=== PATIENT | male | born 1980 | race Caucasian/White ===

== ENCOUNTER 2018-06-14 15:06 | Emergency (ER) | payer MEDICARE, MEDICAID ==
--- NOTE | 2018-06-14 15:35 | NUR ---
PT DECIDES TO GO TO [facility] TO CHECK IN WITH THEM, HE IS MOVING TO THIS AREA AND WANTS TO GET ESTABLISHED WITH THEM.
[2018-06-15] MEDS ORDERED: RISP3TAB3 PO ×3 (19:38)
[2018-06-15] MEDS ORDERED: PHEN51CR RC (19:42)
[2018-06-15] MEDS ORDERED: LORA10TA7 PO (19:42)
[2018-06-15] MEDS ORDERED: DOCU-28 PO (19:42)
[2018-06-15] MEDS ORDERED: PALI117D IM (19:42)
== END 2018-06-14 16:02 | disposition left against medical advice (07) ==
LOC: ER 15:07
DX: F31.9 Bipolar disorder, unspecified (principal); Z53.21 Procedure and treatment not carried out due to patient leaving prior to being seen by health care provider

== ENCOUNTER 2018-06-15 18:38 | Emergency (ER) | payer MEDICARE, MEDICAID ==
[~2018-06-15] VITALS: Ht 182.9 cm; Wt 80.9 kg
--- NOTE | 2018-06-15 19:00 | NUR ---
pt is in bed sleeping he is on his left side, no s/s of distress
[2018-06-15] MEDS ORDERED: RISP3TAB3 PO ×3 (19:38)
[2018-06-15] MEDS ORDERED: DOCU-28 PO (19:42)
[2018-06-15] MEDS ORDERED: PALI117D IM (19:42)
[2018-06-15] MEDS ORDERED: PHEN51CR RC (19:42)
[2018-06-15] MEDS ORDERED: LORA10TA7 PO (19:42)
[2018-06-15 19:50] LABS: URINE AMPHETAMINE SCREEN NEGATIVE (Neg); URINE BARBITUATE SCREEN NEGATIVE (Neg); URINE BENZODIAZEPINES SCREEN NEGATIVE (Neg); URINE CANNABINOID SCREEN POSITIVE (Neg); URINE COCAINE SCREEN NEGATIVE (Neg); URINE METHADONE SCREEN NEGATIVE (Neg); URINE OPIATE SCREEN NEGATIVE (Neg); URINE PHENCYCLIDINE SCREEN NEGATIVE (Neg)
[2018-06-15 19:58] LABS: BASOPHILS % (AUTO) 0.8 % (0-1); EOSINOPHILS # (AUTO) 0.1 X10'3 (0-0.9); EOSINOPHILS % (AUTO) 2.9 % (0-6); HEMATOCRIT 39.9 % (42.0-52.0); HEMOGLOBIN 13.3 g/dl (14.0-17.9); LYMPHOCYTES % (AUTO) 43.6 % (21-51); MEAN CORPUSCULAR HEMOGLOBIN 30.6 PG (27.0-31.0); MEAN CORPUSCULAR HGB CONC 33.3 % (33.0-36.5); MEAN CORPUSCULAR VOLUME 91.9 FL (78-98); MEAN PLATELET VOLUME 7.1 FL (7.4-10.4); MONOCYTES # (AUTO) 0.4 X10'3 (0-0.9); MONOCYTES % (AUTO) 9.1 % (2-12); NEUTROPHILS % (AUTO) 43.6 % (42-75); PLATELET COUNT 240 X10'3 (140-440); RED BLOOD COUNT 4.34 X10'6 (4.70-6.10); RED CELL DISTRIBUTION WIDTH 12.8 % (11.5-14.5); WHITE BLOOD COUNT 4.6 X10'3 (4.5-11.0)
--- NOTE | 2018-06-15 20:00 | NUR ---
called telepsych spoke to Yifan, initiated consult,
[2018-06-15 20:05] LABS: ALANINE AMINOTRANSFERASE 33 U/L (12-78); ALBUMIN 3.6 G/DL (3.4-5.0); ALBUMIN/GLOBULIN RATIO 1.3 (1.1-1.5); ALKALINE PHOSPHATASE 78 IU/L (46-116); ANION GAP 9 (8-16); ASPARTATE AMINO TRANSFERASE 25 U/L (10-37); BILIRUBIN,TOTAL 0.2 MG/DL (0.1-1.0); BLOOD UREA NITROGEN 12 MG/DL (7-18); BUN/CREATININE RATIO 16.2 (5.4-32.0); CALCIUM 8.6 MG/DL (8.5-10.1); CHLORIDE 105 MMOL/L (99-107); CREATININE 0.74 MG/DL (0.60-1.10); GLUCOSE 122 MG/DL (70-104); POTASSIUM 3.8 MMOL/L (3.5-5.1); SODIUM 143 MMOL/L (135-145); TOTAL CARBON DIOXIDE 29.4 MMOL/L (24-32); TOTAL PROTEIN 6.4 G/DL (6.4-8.2); eGFR > 90 ML/MIN
[2018-06-15 20:06] LABS: ETHANOL < 0.010 GM/DL (0.0-0.010)
--- NOTE | 2018-06-15 20:52 | NUR ---
pt is in bed sleeping no s/s of distress noted
--- NOTE | 2018-06-15 21:20 | NUR ---
Packet faxed to [facility].
--- NOTE | 2018-06-15 21:30 | NUR ---
pt is sleeping no s/s of distress,spontaneous, non labored breathing, will continue to monitor
--- NOTE | 2018-06-15 21:40 | NUR ---
Resting in bed with eyes closed, appearing to sleep. Resp are even and unlabored. Will continue to monitor.
--- NOTE | 2018-06-15 22:00 | NUR ---
CCC logged on to check camera. Awaiting telepsych consult.
--- NOTE | 2018-06-15 22:46 | NUR ---
Resting in bed with eyes closed, appearing to sleep. Resp are even and unlabored. Will continue to monitor.
--- NOTE | 2018-06-15 23:00 | NUR ---
Up to [facility], self. Rec'd call from telepsych doctor, report endorsed.
--- NOTE | 2018-06-15 23:10 | NUR ---
Telepsych consult underway.
--- NOTE | 2018-06-15 23:25 | NUR ---
During telepsych consult, patient easily agitated, hostile, angry, raising voice. Disjointed communication, flight of ideas. Call rec'd from telepsych after conclusion of consult, recommendations to uphold 5150 and seek placement making note of psychosis.
--- NOTE | 2018-06-16 00:54 | NUR ---
Resting in bed, eyes closed, resp are even and unlabored, appears to sleep. No new concerns or issues noted at this time. Will continue to monitor.
[2018-06-16] MEDS ORDERED: PHENYLEPH/MIN OIL/PETROLAT hemorrhoid oint 57GM tube RC PRN (01:50)
--- NOTE | 2018-06-16 01:54 | NUR ---
Resting in bed, appearing to sleep. Occasionally wakes and is restless, but quickly back to sleep/resting. Will continue to monitor for changes
--- NOTE | 2018-06-16 02:50 | NUR ---
Resting in bed, appearing to sleep, will continue to monitor.
--- NOTE | 2018-06-16 04:01 | NUR ---
Resting in bed, appearing to sleep, will monitor.
--- NOTE | 2018-06-16 05:21 | NUR ---
Self positioning in bed at times. Generally appears to sleep well-eyes closed, resp are even and unlabored. Will continue to monitor.
[2018-06-16] MEDS ORDERED: loratadine 10mg tablet PO SCH (08:00)
[2018-06-16] MEDS ORDERED: docusate sod 100mg capsule PO SCH (08:00)
[2018-06-16] MEDS ORDERED: risperiDONE 0.5mg tablet PO SCH (08:00)
--- NOTE | 2018-06-16 09:50 | NUR ---
RN from [facility] came to assess pt. Informed primary RN that they will be accempting him as a patient. Pt will be readied to be transferred within the next hour.
--- NOTE | 2018-06-16 11:13 | NUR ---
Pt being transferred to [facility] by DAVID Astorga and security as an escort. All belongings transferred with patient.
[2018-06-16 11:25] VITALS: BP 111/68
[2018-06-16] MEDS ORDERED: risperiDONE 2mg tablet PO SCH (21:00)
[2018-07-06] MEDS ORDERED: PALIPERIDONE IM SCH (10:00)
== END 2018-06-16 11:15 ==
LOC: ER 18:38
DX: F31.9 Bipolar disorder, unspecified (principal); F17.210 Nicotine dependence, cigarettes, uncomplicated; F12.90 Cannabis use, unspecified, uncomplicated; Z79.899 Other long term (current) drug therapy
CPT/HCPCS: 36415; 80053; 80305; 80320; 85025; 99285

== ENCOUNTER 2018-06-16 09:30 | Inpatient (IN) | payer MEDICARE, MEDICAID ==
[~2018-06-16] VITALS: Ht 182.9 cm; Wt 62.9 kg
[~2018-06-16 09:30] MED LIST: DOCU-28 PO; LORA10TA7 PO; PALI117D IM; PHEN51CR RC; RISP3TAB3 PO
[2018-06-16] MEDS ORDERED: magnesium hydroxide 30ml (MOM) UD suspension PO PRN (11:15)
[2018-06-16] MEDS ORDERED: acetaminophen 325mg tablet PO PRN ×2 (11:15)
[2018-06-16] MEDS ORDERED: mag hydrox/Alum hydrox/simeth 30ml oral suspension PO PRN (11:15)
--- NOTE | 2018-06-16 11:15 | NUR ---
Admit Note: Legal status: 5150 Pt admitted to unit from overflow ED @ [address] Nicole. While here from [place] visiting family pt's parents asked him to go to [facility] for a psychiatric evaluation. While there pt quit talking to the clinician and began using sign language he then yelled and threatened parents and the clinician. Pt endorses A/H and a history of bipolar. He was discharged on 05/28/18 from [facility] inpt unit. While there he had a PPD which was read on 05/25/18 and was negative per RN on the unit. Supervising RN put in a request to Medical Records to have the information faxed over on Monday. All property inventoried by MARJ Mason and secured in lockers and safe.
[2018-06-16] MEDS ORDERED: tuberculin, purif. prot. deriv. 5 units/0.1ml ID ONE (11:45)
--- NOTE | 2018-06-16 16:54 | NUR ---
Spoke with nurse at [facility]. Pt received a PPD which was read on 05/25/2018 and was negative. The nurse agreed to fax the information to be placed in pt's chart.
--- NOTE | 2018-06-16 17:08 | NUR ---
Negative PPD results need to come from [facility] on Monday. Please call Monday.
--- NOTE | 2018-06-16 17:53 | NUR ---
RN progress note: Chief Complaint: 38 year old male presents to the ED via EMS on a 5150 from [facility] for unsafe and threatening actions. Patient states that he did not believe he was being threatening and has no intent to harm himself or other but does state that he believes in "Karma." He notes that he has bipolar but does not like to "label himself because it is traumatic and has had an enough trauma." He notes that being here right now is "traumatic" and every other time that he has been placed on a psychiatric hold. Legal hold: 5150 Danger to Self Report received from Nubia Kendrick RN. Why are they here: Pt came through access to be evaluated for [facility] services. Pt was brought in by his parents. Pt appeared to be delusional and started signing in the middle of the assessment. Pt appeared to be disorganized with odd behavior and movements. Pt reports AH. Pt has been taking his meds as prescribed. Pt started screaming and treating his parents in a very loud voice. Pt displays disorganized thinking and erratic behavior. Pt is being placed on 5150 for DTO. Diagnosis/presenting symptoms: F31.9 - Bipolar disorder, unspecified Assessment: Patient presents on the floor slightly guarded with mild irritation that seems appropriate to situation. He states that he is tired of being made to come to places like this. Patient is not conversational but does answer questions asked. He states that he has family and a girlfriend that is supportive. He denies AH and depression. He reports that he was diagnosed at age 25 with bipolar but struggled for many years prior to that. He reports that he has difficulty sleeping at times and his last manic episode was about a month ago. Prior to that it was a couple years. He states he smokes about 3cigarettes a day and is not interested in assistance with quitting smoking feeling that he will be successful on his own. Patient is vegetarian and ate lunch meal provided. Pt was released two weeks ago from [facility]. States PPD was done there, request made for records. S/I, H/I: Denies. A/VH: Denies Sleep: poor sleep ADL's: Independent Group attendance: no Were meds taken: no Any med S/E: sedation from [facility] Mental Status Exam Appearance: Clean, well groomed, wearing green scrubs. Eye contact: Good Behavior: guarded cooperative Speech: soft tone, normal rate/rhythm Mood: mild agitation Affect: restricted Thought process: guarded Thought Content: wanting to go home Cognition: A&O x4 Insight: Fair Judgment: fair Interventions PRN's used: None. Therapeutic interventions: 1:1 , assessment, q15 minute safety checks. Restraints/seclusion/emergency medication: None Justification of Continued Inpatient Treatment: Patient currently unstable and in need of medication management to help decrease mental health symptoms. Patient is currently being held for a danger to self.
[2018-06-16 19:00] VITALS: BP 120/73
[2018-06-16] MEDS ORDERED: PHENYLEPH/MIN OIL/PETROLAT hemorrhoid oint 57GM tube RC PRN (19:45)
[2018-06-16] MEDS: risperiDONE 2mg tablet PO SCH (20:18)
[2018-06-16] MEDS ORDERED: risperiDONE 2mg tablet PO SCH (21:00)
--- NOTE | 2018-06-17 05:25 | NUR ---
RN progress note: Chief Complaint: 38 year old male presents to the ED via EMS on a 5150 from [facility] for unsafe and threatening actions. Patient states that he did not believe he was being threatening and has no intent to harm himself or other but does state that he believes in "Karma." He notes that he has bipolar but does not like to "label himself because it is traumatic and has had an enough trauma." He notes that being here right now is "traumatic" and every other time that he has been placed on a psychiatric hold. Legal hold: 5150 Danger to Self Report received from Nubia Kendrick RN. Why are they here: Pt came through access to be evaluated for [facility] services. Pt was brought in by his parents. Pt appeared to be delusional and started signing in the middle of the assessment. Pt appeared to be disorganized with odd behavior and movements. Pt reports AH. Pt has been taking his meds as prescribed. Pt started screaming and treating his parents in a very loud voice. Pt displays disorganized thinking and erratic behavior. Pt is being placed on 5150 for DTO. Diagnosis/presenting symptoms: F31.9 - Bipolar disorder, unspecified Assessment: Pt lying in bed at the start of the shift, I introduced myself as his nurse and he was pleasant and cooperative and denied any current needs. He visited with his parents and then returned to bed. Pts parents are requesting that he be discharged back to [place] where he has his psychiatric treatment team and where he normally resides. I left message to notify family welfare social work professor of this desire and they would also like someone to speak with the psychiatrist that normally treats him in [place]. Pt took his meds without problems, did obtain order for hemorrhoid ointment, but it was unable from the pharmacy, offered pt alternatives but he declined. Pt did state during our interaction that he felt like the person that evaluated him did not know what they were doing and that he shouldn't be here. Pt appeared to sleep well throughout the night. S/I, H/I: Denies. A/VH: Denies Sleep: appeared to sleep well ADL's: Independent Group attendance: no groups scheduled this shift Were meds taken: yes Any med S/E: denied Mental Status Exam Appearance: Clean, well groomed, wearing green scrubs. Eye contact: Good Behavior: cooperative with assessment, upset with being here Speech: soft tone, normal rate/rhythm Mood: even, irritable when he talks about being here Affect: blunted Thought process:linear Thought Content: focused on wanting to go home Cognition: A&O x4 Insight: Fair Judgment: fair Interventions PRN's used: None. Therapeutic interventions: 1:1 , assessment, q15 minute safety checks. Restraints/seclusion/emergency medication: None Justification of Continued Inpatient Treatment: Patient currently unstable and in need of medication management to help decrease mental health symptoms. Patient is currently being held for a DTO/gravely disabled.
[2018-06-17 07:46] LABS: BASOPHILS % (AUTO) 0.6 % (0-1); EOSINOPHILS # (AUTO) 0.1 X10'3 (0-0.9); EOSINOPHILS % (AUTO) 2.5 % (0-6); HEMATOCRIT 43.1 % (42.0-52.0); HEMOGLOBIN 14.4 g/dl (14.0-17.9); LYMPHOCYTES # (AUTO) 1.5 X10'3 (1.1-4.8); LYMPHOCYTES % (AUTO) 39.4 % (21-51); MEAN CORPUSCULAR HEMOGLOBIN 30.8 PG (27.0-31.0); MEAN CORPUSCULAR HGB CONC 33.3 % (33.0-36.5); MEAN CORPUSCULAR VOLUME 92.6 FL (78-98); MEAN PLATELET VOLUME 7.3 FL (7.4-10.4); MONOCYTES # (AUTO) 0.3 X10'3 (0-0.9); MONOCYTES % (AUTO) 8.2 % (2-12); NEUTROPHILS # (AUTO) 1.9 X10'3 (1.8-7.7); NEUTROPHILS % (AUTO) 49.3 % (42-75); PLATELET COUNT 234 X10'3 (140-440); RED BLOOD COUNT 4.66 X10'6 (4.70-6.10); RED CELL DISTRIBUTION WIDTH 12.9 % (11.5-14.5); WHITE BLOOD COUNT 3.9 X10'3 (4.5-11.0)
[2018-06-17 07:55] LABS: HEMOGLOBIN A1C 5.5 % (4.5-6.2)
[2018-06-17 08:00] VITALS: BP 120/82
[2018-06-17] MEDS: risperiDONE 2mg tablet PO SCH ×2 (08:03→21:13)
[2018-06-17] MEDS: loratadine 10mg tablet PO SCH (11:34)
[2018-06-17] MEDS: docusate sod 100mg capsule PO SCH ×2 (11:34→21:12)
--- NOTE | 2018-06-17 16:15 | NUR ---
RN progress note: Chief Complaint: 38 year old male presents to the ED via EMS [facility] and threatening actions. Patient states that he did not believe he was being threatening and has no intent to harm himself or other but does state that he believes in "Karma." He notes that he has bipolar but does not like to "label himself because it is traumatic and has had an enough trauma." He notes that being here right now is "traumatic" and every other time that he has been placed on a psychiatric hold. Legal hold: 5150 Danger to Self expires 06/19/18 @1115 Report received from Madeleine TORRES. Why are they here: Pt came through access to be evaluated for [facility]. Pt was brought in by his parents. Pt appeared to be delusional and started signing in the middle of the assessment. Pt appeared to be disorganized with odd behavior and movements. Pt reports AH. Pt has been taking his meds as prescribed. Pt started screaming and treating his parents in a very loud voice. Pt displays disorganized thinking and erratic behavior. Pt is being placed on 5150 for DTO. Diagnosis/presenting symptoms: F31.9 - Bipolar disorder, unspecified Assessment: Patient up in visible on the unit interacting appropriately with staff and peers. Patient endorses some minimal depression but denies suicidal thoughts. Patient also denies auditory and visual hallucinations. Patient has some bizarre conspiratorial thoughts about certain topics that became evident during conversation with staff. Patient states smoking weed every day keeps him while but he says he has a smell a certain strain of weed because the other strain causes his brain to overthink things and he gets angry at people. Patient compliant with medications. Patient did have a nice visit with family. Patient talks about his plan of being discharged by Monday to see his girlfriend for her birthday and he says he has a spot reserved at a homeless custodial in [place]. S/I, H/I: Denies. A/VH: Denies Sleep: poor sleep ADL's: Independent Group attendance: yes Were meds taken: yes Any med S/E: Mental Status Exam Appearance: Clean, well groomed, wearing green scrubs. Eye contact: Good Behavior: guarded cooperative Speech: soft tone, normal rate/rhythm Mood: mild agitation Affect: restricted Thought process: guarded Thought Content: wanting to go home Cognition: A&O x4 Insight: Fair Judgment: fair Interventions PRN's used: None. Therapeutic interventions: 1:1 , assessment, q15 minute safety checks. Restraints/seclusion/emergency medication: None Justification of Continued Inpatient Treatment: Patient currently unstable and in need of medication management to help decrease mental health symptoms. Patient is currently being held for a danger to self.
[2018-06-17 19:55] VITALS: BP 106/69
--- NOTE | 2018-06-18 04:16 | NUR ---
RN PROGRESS NOTE: CHIEF COMPLAINT: Altered Thought and Mood. Hx Bipolar DO. LEGAL HOLD: 5150 DTS (expires 06/19/18 @1115.) Report received from Nubia Kendrick RN. Why are they here: Clients mood and behavior became very erratic. A 5150 was written by [facility]. Client became agitated during assessment by [facility]. Diagnosis/presenting symptoms: Bipolar Disorder. Labile mood. Altered thoughts. Assessment: Client was quiet and walked briefly on unit. Isolated in his room and fell asleep. When asked "How are you doing?". Client responded "There's no room for improvement. I don't need to be here. I don't need this. I'm fine." He was polite. Compliant with meds. S/I, H/I: Denies. A/VH: Denies Sleep: Interrupted. ADL's: Independent. Group attendance: N/A. Were meds taken: Yes. Any med S/E: Denies. Mental Status Exam Appearance: Clean, well groomed. Eye contact: Good Behavior: Cooperative Speech: WNL Mood: Mild irritability. Affect: Constricted. Thought process: Linear. Thought Content: Wants to be discharged. Cognition: A&O x4 Insight: Poor. Does not recognized need for mental health treatment. Judgment: Fair. Interventions PRN's used: None. Therapeutic interventions: 1:1 ,q15 minute safety checks. Restraints/seclusion/emergency medication: N/A. Justification of Continued Inpatient Treatment: Needs continued support and medication stabilization.
[2018-06-18 07:37] VITALS: BP 105/71
[2018-06-18] MEDS: docusate sod 100mg capsule PO SCH ×2 (07:39→20:49)
[2018-06-18] MEDS: loratadine 10mg tablet PO SCH (07:39)
[2018-06-18] MEDS: risperiDONE 2mg tablet PO SCH ×2 (07:40→20:50)
[2018-06-18] MEDS ORDERED: benzocaine/benzethon 30gm ointment RC PRN (10:35)
[2018-06-18] MEDS: ibuprofen tablet 400 MG TABLET PO PRN (10:36)
--- NOTE | 2018-06-18 17:43 | NUR ---
RN PROGRESS NOTE: CHIEF COMPLAINT: Altered Thought and Mood. Hx Bipolar DO. LEGAL HOLD: 5150 DTS (expires 06/19/18 @1115.) Report received from Anamaria Lee RN. Why are they here: Clients mood and behavior became very erratic. A 5150 was written by [facility]. Client became agitated during assessment by [facility]. Diagnosis/presenting symptoms: F25.0 - Schizoaffective disorder, bipolar type Labile mood. Altered thoughts. Assessment: Patient presents in his room, he is clean and well groomed. He states that he slept well the night before however, his neck is hurting. He requests Ibuprofen and becomes slightly agitated when informed he only has Tylenol prescribed states That wont do me any good, I wont even bother taking it. Ibuprofen is prescribed and administered. Patient is compliant with all other meds. Patient states his mood is pretty good, a little sad to be here. Patients mother and father visited, there was heated discussion r/t patients marijuana use. It is agreed that patients family will extend help to him only if patient agrees to stop using marijuana. Patient reports that after some discussion he is accepting of their offer and will abide by their wishes. Some delusional thought content present when patient discusses why he doesn't eat meat but is ok with eating eggs. Conversation was hard to follow at that point. S/I, H/I: Denies. A/VH: Denies Sleep: slept well ADL's: Independent. Group attendance: yes Were meds taken: Yes. Any med S/E: Denies. Mental Status Exam Appearance: Clean, well groomed. Eye contact: direct Behavior: Cooperative Speech: soft tone, normal rate/rhythm Mood: Mild irritability. Affect: Constricted. Thought process: Linear. Thought Content: goal directed Cognition: A&O x4 Insight: fair Judgment: Fair. Interventions PRN's used: Ibuprofen Therapeutic interventions: 1:1 conversation with RN that included active listening and positive feedback. q15 minute safety checks. Restraints/seclusion/emergency medication: N/A. Justification of Continued Inpatient Treatment: Needs continued support and medication stabilization to prevent further decompensation.
[2018-06-18 20:00] VITALS: BP 104/62
--- NOTE | 2018-06-19 02:49 | NUR ---
RN progress note: Chief Complaint: 38 year old male presents to the ED via EMS on a 5150 from [facility] for unsafe and threatening actions. Patient states that he did not believe he was being threatening and has no intent to harm himself or other but does state that he believes in "Karma." He notes that he has bipolar but does not like to "label himself because it is traumatic and has had an enough trauma." He notes that being here right now is "traumatic" and every other time that he has been placed on a psychiatric hold. Legal hold: 5150 Report received from Paula TORRES. Why are they here: Pt came through access to be evaluated for [facility] services. Pt was brought in by his parents. Pt appeared to be delusional and started signing in the middle of the assessment. Pt appeared to be disorganized with odd behavior and movements. Pt reports AH. Pt has been taking his meds as prescribed. Pt started screaming and treating his parents in a very loud voice. Pt displays disorganized thinking and erratic behavior. Pt is being placed on 5150 for DTO. Diagnosis/presenting symptoms: F31.9 - Bipolar disorder, unspecified Assessment: Pt seen up on the unit for a brief period of time, was watching football game in the recreation room. He was pleasant upon approach and requested he get his evening meds at the earliest time possible. Pt was lying in bed when I went to administer his meds. He took his meds without problems and denied any side effects. Pt answered questions appropriately, and then returned to sleep. S/I, H/I: Denies. A/VH: Denies Sleep: appeared to sleep well ADL's: Independent Group attendance: no groups scheduled this shift Were meds taken: yes Any med S/E: denied Mental Status Exam Appearance: Clean, well groomed Eye contact: Good Behavior: cooperative Speech: soft tone, normal rate/rhythm Mood: even Affect: blunted Thought process:linear Thought Content: no delusions or odd statements during our interaction Cognition: A&O x4 Insight: Fair Judgment: fair Interventions PRN's used: None. Therapeutic interventions: 1:1 , assessment, q15 minute safety checks, monitored for effects/ side effects to meds, monitored sleep. Restraints/seclusion/emergency medication: None Justification of Continued Inpatient Treatment: Patient currently unstable and in need of medication management to help decrease mental health symptoms. Patient is currently being held for a DTO/gravely disabled.
[2018-06-19] MEDS: ibuprofen tablet 400 MG TABLET PO PRN (05:26)
[2018-06-19] MEDS: docusate sod 100mg capsule PO SCH (07:44)
[2018-06-19] MEDS: risperiDONE 2mg tablet PO SCH (07:44)
[2018-06-19] MEDS: loratadine 10mg tablet PO SCH (07:44)
[2018-06-19 08:00] VITALS: BP 105/72
[2018-06-19] MEDS ORDERED: AMER30O RC (12:14)
[2018-06-19] MEDS ORDERED: DOCU-28 PO (12:14)
[2018-06-19] MEDS ORDERED: LORA10TA7 PO (12:14)
[2018-06-19] MEDS ORDERED: RISP3TAB3 PO ×2 (12:14)
[2018-06-19] MEDS ORDERED: PALI156D IM (12:14)
--- NOTE | 2018-06-19 13:39 | NUR ---
1338 Pt discharged back to [place]. His father will transport him to to see his GF and then to [place] where pt has appointments set up with [facility] and doctor. Pt left with his father thanked staff for "your help" with a smile. He agrees to continue treatment and that he should stay on his medications. He is aware he is going to need his next Invega Sustenna injection the end of June around the . All personal belongings inventoried and returned to pt per MARJ Astorga., 2 bags, a computer bag with laptop and medications were taken out by patient.
== END 2018-06-19 13:38 | disposition short-term general hospital (02) | DRG 885 ==
LOC: ADULT MH 09:30
PROVIDERS: ADMIT Psychiatry & Neurology Psychiatry; ATTEND Psychiatry & Neurology Psychiatry
DX: F25.0 Schizoaffective disorder, bipolar type (principal); F17.210 Nicotine dependence, cigarettes, uncomplicated; F12.10 Cannabis abuse, uncomplicated; F32.9 Major depressive disorder, single episode, unspecified; Z59.0 Homelessness; Z83.3 Family history of diabetes mellitus
CPT/HCPCS: 36415; 83036; 84443; 85025; 87070